=== PATIENT | female | born 1995 ===

== ENCOUNTER 2022-02-05 13:21 | Emergency (ER) | payer SELFPAY | END 2022-02-05 13:26 | disposition left against medical advice (07) | LOC: ED 13:21 | DX: M54.9 Dorsalgia, unspecified (principal); Z53.21 Procedure and treatment not carried out due to patient leaving prior to being seen by health care provider; V87.7XXA Person injured in collision between other specified motor vehicles (traffic), initial encounter; Y93.89 Activity, other specified; Y92.488 Other paved roadways as the place of occurrence of the external cause; Y99.8 Other external cause status ==